=== PATIENT | female | born 1990 | race Two or more races ===

== ENCOUNTER 2023-05-24 18:52 | Emergency (ER) | payer OTHER ==
[~2023-05-24] VITALS: Ht 165.1 cm; Wt 68.2 kg
[2023-05-24 18:55] VITALS: TEMP 98.1
[2023-05-24] MEDS ORDERED: ONDA-104 PO (20:44)
[2023-05-24] MEDS ORDERED: DIPH50 PO (20:44)
[2023-05-24] MEDS ORDERED: ONDANSETRON HCL 4 MG TABLET PO ONE (20:45)
[2023-05-24] MEDS ORDERED: DiphenhydrAMINE HCL 50 MG CAPSULE PO ONE (20:45)
[2023-05-24 20:48] VITALS: BP 124/77; PULSE 88; RESP 16
== END 2023-05-24 20:49 | disposition home or self-care (01) ==
LOC: EMS 18:54
DX: T78.40XA Allergy, unspecified, initial encounter (principal); Z91.013 Allergy to seafood; Z98.890 Other specified postprocedural states; X58.XXXA Exposure to other specified factors, initial encounter
CPT/HCPCS: 99283; Q0162